=== PATIENT | female | born 1965 | race Caucasian/White ===

== ENCOUNTER 2018-06-10 10:07 | Emergency (ER) | payer BC ==
[~2018-06-10] VITALS: Ht 165.1 cm; Wt 85.2 kg
[2018-06-10 10:40] VITALS: BP 132/84
== END 2018-06-10 11:12 | disposition home or self-care (01) ==
LOC: ER 10:07
DX: S80.12XA Contusion of left lower leg, initial encounter (principal); Z90.710 Acquired absence of both cervix and uterus; Z88.8 Allergy status to other drugs, medicaments and biological substances; W10.8XXA Fall (on) (from) other stairs and steps, initial encounter; Y93.89 Activity, other specified; Y92.89 Other specified places as the place of occurrence of the external cause; Y99.8 Other external cause status
CPT/HCPCS: 73590; 99284